=== PATIENT | male | born 1970 | race Two or more races ===

== ENCOUNTER 2018-08-29 18:35 | Emergency (ER) | payer MEDICAID, OTHER ==
[~2018-08-29] VITALS: Ht 165.1 cm; Wt 71.2 kg
[2018-08-29 18:43] VITALS: BP 136/67
[2018-08-29] MEDS ORDERED: NAPR-56 PO (20:24)
[2018-08-29] MEDS ORDERED: ketorolac tromethamine 15mg/ml inj. IM ONE (20:35)
== END 2018-08-29 20:57 | disposition home or self-care (01) ==
LOC: ER 18:36
DX: S80.212A Abrasion, left knee, initial encounter (principal); W20.8XXA Other cause of strike by thrown, projected or falling object, initial encounter; Y93.89 Activity, other specified; Y92.89 Other specified places as the place of occurrence of the external cause; Y99.8 Other external cause status
CPT/HCPCS: 73564; 82948; 96372; 99284; J1885

== ENCOUNTER 2018-10-19 18:15 | Emergency (ER) | payer MEDICAID ==
[~2018-10-19] VITALS: Ht 165.1 cm; Wt 70.7 kg
[2018-10-19 18:21] VITALS: BP 157/94
[2018-10-19] MEDS ORDERED: AMOX-580 PO (19:10)
== END 2018-10-19 19:31 | disposition home or self-care (01) ==
LOC: ER 18:16
DX: K04.7 Periapical abscess without sinus (principal); Z79.899 Other long term (current) drug therapy
CPT/HCPCS: 99283

== ENCOUNTER 2019-08-06 17:02 | Emergency (ER) | payer MEDICAID ==
[~2019-08-06] VITALS: Ht 165.1 cm; Wt 54.0 kg
[2019-08-06 20:37] VITALS: BP 103/66
== END 2019-08-06 20:50 | disposition home or self-care (01) ==
LOC: ER 17:02
DX: Z02.89 Encounter for other administrative examinations (principal); F15.90 Other stimulant use, unspecified, uncomplicated
CPT/HCPCS: 99281

== ENCOUNTER 2022-12-16 21:50 | Inpatient (IN) | payer MEDICAID ==
[~2022-12-16] VITALS: Ht 165.1 cm; Wt 55.0 kg
[2022-12-17 00:15] LABS: BASOPHILS # (AUTO) 0.1 X10'3 (0-0.2); EOSINOPHILS # (AUTO) 0.3 X10'3 (0-0.9); EOSINOPHILS % (AUTO) 2.6 % (0-6); HEMOGLOBIN 10.7 g/dl (14.0-17.9); LYMPHOCYTES # (AUTO) 1.3 X10'3 (1.1-4.8); LYMPHOCYTES % (AUTO) 13.5 % (21-51); MEAN CORPUSCULAR HEMOGLOBIN 30.1 PG (27.0-31.0); MEAN CORPUSCULAR HGB CONC 33.4 g/dL (33.0-36.5); MEAN CORPUSCULAR VOLUME 90.1 FL (78-98); MEAN PLATELET VOLUME 6.6 FL (7.4-10.4); MONOCYTES # (AUTO) 0.7 X10'3 (0-0.9); MONOCYTES % (AUTO) 7.3 % (2-12); NEUTROPHILS # (AUTO) 7.5 X10'3 (1.8-7.7); NEUTROPHILS % (AUTO) 75.6 % (42-75); PLATELET COUNT 515 X10'3 (140-440); RED BLOOD COUNT 3.55 X10'6 (4.70-6.10); RED CELL DISTRIBUTION WIDTH 15.1 % (11.5-14.5); WHITE BLOOD COUNT 9.9 X10'3 (4.5-11.0)
[2022-12-17 00:41] LABS: ALANINE AMINOTRANSFERASE 21 U/L (12-78); ALBUMIN 2.6 G/DL (3.4-5.0); ALBUMIN/GLOBULIN RATIO 0.5 (1.1-1.5); ALKALINE PHOSPHATASE 129 IU/L (46-116); ANION GAP 7 (8-16); ASPARTATE AMINO TRANSFERASE 17 U/L (10-37); BILIRUBIN,TOTAL 0.2 MG/DL (0.1-1.0); BLOOD UREA NITROGEN 16 MG/DL (7-18); CALCIUM 8.8 MG/DL (8.5-10.1); CHLORIDE 105 MMOL/L (99-107); GLUCOSE 103 MG/DL (70-104); POTASSIUM 3.8 MMOL/L (3.5-5.1); SODIUM 141 MMOL/L (135-145); TOTAL CARBON DIOXIDE 28.8 MMOL/L (24-32); TOTAL PROTEIN 7.5 G/DL (6.4-8.2); eGFR 78 ML/MIN
[2022-12-17 00:49] LABS: MAGNESIUM 1.8 MG/DL (1.5-2.4)
[2022-12-17] MEDS ORDERED: piperacillin/tazo 3.375gm/50ml 50 ML IV ONE (01:15)
[2022-12-17] MEDS ORDERED: vancomycin/NS 1 GM ADD-VANTAGE 250 ML IV ONE (01:15)
[2022-12-17 01:22] LABS: CLARITY,URINE CLEAR (Clear); COLOR,URINE YELLOW (Yellow); GLUCOSE, URINE 250 mg/dl (Neg); KETONES,URINE NEGATIVE (Neg); LEUKOCYTE ESTERASE ,URINE NEGATIVE (Neg); NITRITES, URINE NEGATIVE (Neg); OCCULT BLOOD,URINE NEGATIVE (Neg); PROTEIN,URINE NEGATIVE (Neg); UROBILINOGEN,URINE 0.2 E.U/dL (0.2-1.0)
[2022-12-17 01:27] LABS: UA COLLECTION TYPE STRAIGHT CATH
[2022-12-17 01:30] LABS: C-REACTIVE PROTEIN 2.88 MG/DL (0.0-0.5)
[2022-12-17 01:36] LABS: URINE AMPHETAMINE SCREEN POSITIVE (Neg); URINE BARBITUATE SCREEN NEGATIVE (Neg); URINE BENZODIAZEPINES SCREEN NEGATIVE (Neg); URINE CANNABINOID SCREEN NEGATIVE (Neg); URINE COCAINE SCREEN NEGATIVE (Neg); URINE METHADONE SCREEN NEGATIVE (Neg); URINE OPIATE SCREEN NEGATIVE (Neg); URINE PHENCYCLIDINE SCREEN NEGATIVE (Neg)
[2022-12-17] MEDS ORDERED: LORazepam 1 MG tablet PO PRN (01:55)
[2022-12-17] MEDS ORDERED: mag hydrox/Alum hydrox/simeth 30ml oral suspension PO PRN (01:55)
[2022-12-17] MEDS ORDERED: magnesium 4gm in 100ml NS 100 ML IV PRN (01:55)
[2022-12-17] MEDS ORDERED: magnesium hydroxide 30ml (MOM) UD suspension PO PRN (01:55)
[2022-12-17] MEDS ORDERED: DEXTROSE 15 GM of carb/4 tabs (each vial/BOTTLE has 4 tablets) PO PRN ×2 (01:55)
[2022-12-17] MEDS ORDERED: LORazepam 0.5 MG tablet PO PRN (01:55)
[2022-12-17] MEDS ORDERED: ondansetron 4mg rapidly disintigrating tab PO PRN (01:55)
[2022-12-17] MEDS ORDERED: magnesium Cl slow-release 64mg tablet PO PRN (01:55)
[2022-12-17] MEDS ORDERED: LORazepam 2 mg/ml vial IV PRN ×2 (01:55)
[2022-12-17] MEDS ORDERED: HYDROmorphone inj. 0.5 MG/0.5 ML DISP.SYRIN IV PRN (01:55)
[2022-12-17] MEDS ORDERED: glucagon, human recombinant 1mg kit SUBCUT PRN (01:55)
[2022-12-17] MEDS ORDERED: potassium Cl 40MEQ/1/2NS 520ml 520 ML IV PRN (01:55)
[2022-12-17] MEDS ORDERED: acetaminophen 650mg rectal suppository RC PRN (01:55)
[2022-12-17] MEDS ORDERED: ondansetron/PF 4mg/2ml inj IV PRN (01:55)
[2022-12-17] MEDS ORDERED: acetaminophen 325mg tablet PO PRN ×2 (01:55)
[2022-12-17] MEDS ORDERED: dextrose 50%-water 50ml dispensing syringe IV PRN ×2 (01:55)
[2022-12-17] MEDS ORDERED: HYDROcodone/acetaminophen 5mg/325mg tablet PO PRN (01:55)
[2022-12-17] MEDS ORDERED: HYDROcodone/acetaminophen 10/325mg tab PO PRN (01:55)
[2022-12-17] MEDS ORDERED: potassium Cl 20 mEq SR tablet PO PRN ×2 (01:55)
[2022-12-17] MEDS ORDERED: HYDROmorphone/PF 0.2 MG/ML SYRINGE IV PRN (01:55)
[2022-12-17] MEDS ORDERED: MESSAGE TO PHARMACY PO ONE (01:55)
[2022-12-17] MEDS: normal saline 1000ml 1,000 ML IV SCH ×3 (02:38→21:55)
[2022-12-17] MEDS ORDERED: TETanus/Pertussis (Acell)/Diphther VAC/PF (Tdap-Adult) 0.5ml syringe IMVAC ONE (03:55)
[2022-12-17] MEDS ORDERED: INSU100V11 SQ (05:04)
[2022-12-17] MEDS ORDERED: LISI5TAB22 PO (05:04)
[2022-12-17] MEDS ORDERED: GLIP5TAB13 PO (05:04)
[2022-12-17] MEDS ORDERED: INSU100I75 SQ (05:04)
--- NOTE | 2022-12-17 07:59 | NUR ---
550cc urine output clear pale yellow
[2022-12-17] MEDS: heparin, porcine 5000 units/ml vial SQ SCH ×2 (08:21→20:22)
[2022-12-17] MEDS: piperacillin/tazo 3.375gm/50ml 50 ML IV SCH ×2 (08:21→20:22)
[2022-12-17] MEDS: docusate sod 100mg capsule PO SCH ×2 (08:21→20:22)
--- NOTE | 2022-12-17 08:24 | NUR ---
K+ 3.8 Mag 1.8
[2022-12-17] MEDS: K and/or MAG REPLACEMENT MC SCH ×2 (08:43→20:00)
--- NOTE | 2022-12-17 14:15 | NUR ---
DIABETIC FOOT CARE EDUCATION PROVIDED BY [facility] * Wash your feet daily with lukewarm water and soap. * Dry your feet well, especially between the toes. * Keep the skin moisturized with lotion, but do not apply it between the toes. * Check your feet for blisters, cuts or sores. * Use an emery board to shape your toenails even with the ends of your toes. * Change daily into clean, soft socks or stockings, not too big or too small. * Keep your feet warm and dry. * Preferably wear special padded socks and shoes that fit well. * Never walk barefoot indoors or outdoors. * Examine your shoes everyday for cracks, charissa, nails or anything that could hurt your feet. * Tell your doctor if you find any of these problems or have any concerns after examining your feet. Addendum: 12/17/22 at 1415 by Ines Kim RN Amended: Links added.
--- NOTE | 2022-12-17 16:01 | NUR ---
1200cc urine pale yellow.
[2022-12-17] MEDS: vancomycin/NS 1 GM ADD-VANTAGE 250 ML IV SCH (16:20)
--- NOTE | 2022-12-17 18:21 | NUR ---
Problems reprioritized. Patient report given, questions answered & plan of care reviewed with Cynthia Marie RN.
[2022-12-17 20:00] VITALS: BP 98/63
[2022-12-17] MEDS ORDERED: temazepam 15mg capsule PO PRN (21:00)
[2022-12-17] MEDS: insulin glargine (Lantus) pen - multi-dose SQ SCH (21:44)
[2022-12-17] MEDS: insulin Lispro (HumaLOG) vial - multi-dose SQ SCH (21:46)
[2022-12-17 23:00] VITALS: BP 103/68
[2022-12-18] MEDS: piperacillin/tazo 3.375gm/50ml 50 ML IV SCH ×3 (01:32→16:21)
[2022-12-18] MEDS: vancomycin/NS 1 GM ADD-VANTAGE 250 ML IV SCH (03:07)
[2022-12-18] MEDS: normal saline 1000ml 1,000 ML IV SCH ×2 (03:10→14:54)
[2022-12-18 04:50] LABS: BASOPHILS # (AUTO) 0.1 X10'3 (0-0.2); EOSINOPHILS # (AUTO) 0.3 X10'3 (0-0.9); HEMATOCRIT 36.8 % (42.0-52.0); HEMOGLOBIN 12.1 g/dl (14.0-17.9); LYMPHOCYTES # (AUTO) 1.3 X10'3 (1.1-4.8); MEAN CORPUSCULAR HEMOGLOBIN 29.5 PG (27.0-31.0); MEAN CORPUSCULAR HGB CONC 32.9 g/dL (33.0-36.5); MEAN CORPUSCULAR VOLUME 89.5 FL (78-98); MONOCYTES # (AUTO) 0.4 X10'3 (0-0.9); PLATELET COUNT 459 X10'3 (140-440); RED BLOOD COUNT 4.11 X10'6 (4.70-6.10); RED CELL DISTRIBUTION WIDTH 15.2 % (11.5-14.5); WHITE BLOOD COUNT 5.1 X10'3 (4.5-11.0)
[2022-12-18 05:26] LABS: HEMOGLOBIN A1C 11.8 % (4.5-6.2)
[2022-12-18 05:29] LABS: ALANINE AMINOTRANSFERASE 20 U/L (12-78); ALBUMIN 2.2 G/DL (3.4-5.0); ALBUMIN/GLOBULIN RATIO 0.4 (1.1-1.5); ALKALINE PHOSPHATASE 96 IU/L (46-116); ANION GAP 5 (8-16); ASPARTATE AMINO TRANSFERASE 17 U/L (10-37); BILIRUBIN,TOTAL 0.3 MG/DL (0.1-1.0); BLOOD UREA NITROGEN 15 MG/DL (7-18); BUN/CREATININE RATIO 23.1 (5.4-32.0); CALCIUM 8.6 MG/DL (8.5-10.1); CHLORIDE 105 MMOL/L (99-107); CREATININE 0.65 MG/DL (0.60-1.10); GLUCOSE 156 MG/DL (70-104); POTASSIUM 3.7 MMOL/L (3.5-5.1); SODIUM 137 MMOL/L (135-145); TOTAL CARBON DIOXIDE 27.3 MMOL/L (24-32); TOTAL PROTEIN 7.1 G/DL (6.4-8.2); eGFR > 90 ML/MIN
[2022-12-18 06:00] VITALS: BP 97/48
--- NOTE | 2022-12-18 06:30 | NUR ---
Problems reprioritized. Patient report given, questions answered & plan of care reviewed with STEVE TO AND TRINH TO.
[2022-12-18] MEDS: K and/or MAG REPLACEMENT MC SCH ×2 (08:00→20:00)
[2022-12-18] MEDS: heparin, porcine 5000 units/ml vial SQ SCH ×2 (08:19→19:48)
[2022-12-18] MEDS: docusate sod 100mg capsule PO SCH ×2 (08:19→19:47)
[2022-12-18] MEDS: insulin Lispro (HumaLOG) vial - multi-dose SQ SCH ×3 (08:52→19:52)
--- NOTE | 2022-12-18 11:18 | NUR ---
PT. IN SHOWER WITH PCT
[2022-12-18 11:19] VITALS: BP 111/69
--- NOTE | 2022-12-18 12:00 | NUR ---
Received order consult. Met with patient in regards to substance use and to see if patient was interested in resources for treatment options. Patient declined resources.
[2022-12-18] MEDS ORDERED: VANCOMYCIN LEVEL IV ONE (13:30)
[2022-12-18] MEDS ORDERED: iohexol 300mg/ml 100ml inj. ONE (14:04)
--- NOTE | 2022-12-18 14:11 | NUR ---
DM Consult: Pt admit DX R foot cellulitis, meth abuse, and DM A1C 11.8% per EMR. Pt seen by MICHELLE at bedside and declined verbal DM diet ed though is agreeable to written ed w/ RD contact information which were left at bedside. MICHELLE encouraged pt to contact dietitian's office if further nutrition questions/concerns. Addendum: 12/18/22 at [address] Amended: Links added. Addendum: 12/18/22 at [address] DM Consult: Pt admit DX R foot cellulitis, meth abuse, and DM A1C 11.8% per EMR. Pt seen by MICHELLE at bedside and declined verbal DM diet ed though is agreeable to written ed w/ RD contact information which were left at bedside. MICHELLE encouraged pt to contact dietitian's office if further nutrition questions/concerns. Pt does report still hungry after meals is agreeable to double proteins TIDWM for satiety; dietary notified.
[2022-12-18] MEDS: VANCOMYCIN 1,500MG in normal saline IV soln 300 ML IV SCH (14:53)
[2022-12-18 18:00] VITALS: BP 117/71
--- NOTE | 2022-12-18 18:25 | NUR ---
Patient in room [facility]. I have received report from YOUSUF Fried and had the opportunity to ask questions and assume patient care.
--- NOTE | 2022-12-18 18:28 | NUR ---
GAVE REPORT TO CHACORTA TO.
[2022-12-18] MEDS: insulin glargine (Lantus) pen - multi-dose SQ SCH (21:40)
[2022-12-18 22:00] VITALS: BP 104/67
[2022-12-19] MEDS: piperacillin/tazo 3.375gm/50ml 50 ML IV SCH ×2 (00:23→08:28)
[2022-12-19] MEDS: VANCOMYCIN 1,500MG in normal saline IV soln 300 ML IV SCH (03:02)
[2022-12-19] MEDS: normal saline 1000ml 1,000 ML IV SCH (04:07)
[2022-12-19 04:58] LABS: BASOPHILS # (AUTO) 0.1 X10'3 (0-0.2); HEMOGLOBIN 12.2 g/dl (14.0-17.9); LYMPHOCYTES # (AUTO) 1.5 X10'3 (1.1-4.8); MEAN CORPUSCULAR HGB CONC 33.9 g/dL (33.0-36.5); RED CELL DISTRIBUTION WIDTH 14.8 % (11.5-14.5)
[2022-12-19 05:01] LABS: BASOPHILS % (AUTO) 2.1 % (0-1); EOSINOPHILS # (AUTO) 0.3 X10'3 (0-0.9); EOSINOPHILS % (AUTO) 5.2 % (0-6); LYMPHOCYTES % (AUTO) 29.7 % (21-51); MEAN CORPUSCULAR HEMOGLOBIN 30.1 PG (27.0-31.0); MEAN CORPUSCULAR VOLUME 88.8 FL (78-98); MEAN PLATELET VOLUME 7.4 FL (7.4-10.4); MONOCYTES # (AUTO) 0.5 X10'3 (0-0.9); NEUTROPHILS # (AUTO) 2.7 X10'3 (1.8-7.7); PLATELET COUNT 416 X10'3 (140-440); RED BLOOD COUNT 4.05 X10'6 (4.70-6.10)
[2022-12-19 05:16] LABS: ALANINE AMINOTRANSFERASE 14 U/L (12-78); ALBUMIN 2.2 G/DL (3.4-5.0); ALBUMIN/GLOBULIN RATIO 0.4 (1.1-1.5); ALKALINE PHOSPHATASE 100 IU/L (46-116); ANION GAP 6 (8-16); ASPARTATE AMINO TRANSFERASE 17 U/L (10-37); BILIRUBIN,TOTAL 0.3 MG/DL (0.1-1.0); BLOOD UREA NITROGEN 16 MG/DL (7-18); BUN/CREATININE RATIO 23.5 (5.4-32.0); CALCIUM 8.4 MG/DL (8.5-10.1); CHLORIDE 105 MMOL/L (99-107); CREATININE 0.68 MG/DL (0.60-1.10); GLUCOSE 273 MG/DL (70-104); POTASSIUM 3.9 MMOL/L (3.5-5.1); SODIUM 136 MMOL/L (135-145); TOTAL CARBON DIOXIDE 24.9 MMOL/L (24-32); TOTAL PROTEIN 7.1 G/DL (6.4-8.2); eGFR > 90 ML/MIN
--- NOTE | 2022-12-19 06:40 | NUR ---
Problems reprioritized. Patient report given, questions answered & plan of care reviewed with YOUSUF Fried.
[2022-12-19 06:41] VITALS: BP 116/69
[2022-12-19] MEDS: K and/or MAG REPLACEMENT MC SCH (08:00)
[2022-12-19] MEDS: docusate sod 100mg capsule PO SCH (08:00)
[2022-12-19] MEDS: heparin, porcine 5000 units/ml vial SQ SCH (08:23)
[2022-12-19] MEDS: insulin Lispro (HumaLOG) vial - multi-dose SQ SCH (08:28)
[2022-12-19 10:00] VITALS: BP 105/66
[2022-12-19] MEDS ORDERED: NALT50TA PO (12:35)
[2022-12-19] MEDS ORDERED: AMOX-117 PO (12:35)
--- NOTE | 2022-12-19 13:40 | NUR ---
Reviewed discharge paperwork with pt. He has gathered his belongings and called his ride.
[2022-12-20] MEDS ORDERED: VANCOMYCIN LEVEL IV ONE (02:30)
== END 2022-12-19 13:46 | disposition home or self-care (01) | DRG 383 ==
LOC: ER 21:50 → ED HOLD 12-17 02:02 → SUR 3N 12-17 16:50
PROVIDERS: ADMIT Family Medicine; ATTEND Family Medicine
DX: L03.115 Cellulitis of right lower limb (principal); E11.621 Type 2 diabetes mellitus with foot ulcer; L97.419 Non-pressure chronic ulcer of right heel and midfoot with unspecified severity; F15.10 Other stimulant abuse, uncomplicated; E11.65 Type 2 diabetes mellitus with hyperglycemia; F17.210 Nicotine dependence, cigarettes, uncomplicated; M21.961 Unspecified acquired deformity of right lower leg; M21.962 Unspecified acquired deformity of left lower leg; Z79.4 Long term (current) use of insulin; Z79.84 Long term (current) use of oral hypoglycemic drugs; Z28.21 Immunization not carried out because of patient refusal; Z71.6 Tobacco abuse counseling; Z71.51 Drug abuse counseling and surveillance of drug abuser; Z79.899 Other long term (current) drug therapy
CPT/HCPCS: 36415; 71045; 73650; 73701; 80053; 80202; 80305; 81003; 82948; 83036; 83605; 83735; 83880; 84132; 84145; 85025; 85651; 86140; 87040; 87081; 93005; 96365; 99285; A6449; G0378; J1644; J1815; J2543; J3370; J3490; J7030; J7040; Q9967

== ENCOUNTER 2023-01-10 08:36 | Emergency (ER) | payer MEDICAID ==
[~2023-01-10] VITALS: Ht 165.1 cm; Wt 55.0 kg
[~2023-01-10 08:36] MED LIST: GLIP5TAB13 PO; INSU100I75 SQ; INSU100V11 SQ; LISI5TAB22 PO; NALT50TA PO
[2023-01-10] MEDS ORDERED: normal saline 1000ML IV soln IV ONE (09:55)
[2023-01-10 10:30] LABS: BASOPHILS # (AUTO) 0.1 X10'3 (0-0.2); BASOPHILS % (AUTO) 1.1 % (0-1); EOSINOPHILS # (AUTO) 0.1 X10'3 (0-0.9); HEMATOCRIT 41.6 % (42.0-52.0); LYMPHOCYTES # (AUTO) 1.6 X10'3 (1.1-4.8); LYMPHOCYTES % (AUTO) 26.2 % (21-51); MEAN CORPUSCULAR HEMOGLOBIN 30.1 PG (27.0-31.0); MEAN CORPUSCULAR HGB CONC 33.6 g/dL (33.0-36.5); MEAN CORPUSCULAR VOLUME 89.4 FL (78-98); MEAN PLATELET VOLUME 8.2 FL (7.4-10.4); MONOCYTES # (AUTO) 0.3 X10'3 (0-0.9); MONOCYTES % (AUTO) 4.8 % (2-12); NEUTROPHILS % (AUTO) 65.9 % (42-75); PLATELET COUNT 323 X10'3 (140-440); RED BLOOD COUNT 4.66 X10'6 (4.70-6.10); RED CELL DISTRIBUTION WIDTH 15.4 % (11.5-14.5); WHITE BLOOD COUNT 6.2 X10'3 (4.5-11.0)
[2023-01-10 10:41] LABS: ALANINE AMINOTRANSFERASE 20 U/L (12-78); ALBUMIN 3.2 G/DL (3.4-5.0); ALBUMIN/GLOBULIN RATIO 0.8 (1.1-1.5); ALKALINE PHOSPHATASE 165 IU/L (46-116); ANION GAP 8 (8-16); ASPARTATE AMINO TRANSFERASE 12 U/L (10-37); BILIRUBIN,TOTAL 0.2 MG/DL (0.1-1.0); BLOOD UREA NITROGEN 15 MG/DL (7-18); BUN/CREATININE RATIO 19.5 (10.0-20.0); C-REACTIVE PROTEIN 0.13 MG/DL (0.0-0.5); CALCIUM 8.5 MG/DL (8.5-10.1); CHLORIDE 101 MMOL/L (99-107); CREATININE 0.77 MG/DL (0.60-1.10); POTASSIUM 4.2 MMOL/L (3.5-5.1); SODIUM 132 MMOL/L (135-145); TOTAL CARBON DIOXIDE 23.5 MMOL/L (24-32); TOTAL PROTEIN 7.4 G/DL (6.4-8.2); eGFR > 90 ML/MIN
[2023-01-10 10:45] LABS: GLUCOSE 496 MG/DL (70-104)
[2023-01-10] MEDS ORDERED: insulin regular, human 10 units/0.1 ml syringe IV ONE (10:50)
[2023-01-10 12:35] VITALS: BP 116/78
== END 2023-01-10 14:17 | disposition home or self-care (01) ==
LOC: ER 08:36
DX: E11.621 Type 2 diabetes mellitus with foot ulcer (principal); L97.412 Non-pressure chronic ulcer of right heel and midfoot with fat layer exposed
CPT/HCPCS: 36415; 73630; 80053; 82948; 83605; 84145; 85025; 85651; 86140; 87040; 93926; 96361; 96374; 99285; J1815; J7030; A6212